=== PATIENT | female | born 2000 | race Caucasian/White ===

== ENCOUNTER 2019-07-10 04:39 | Emergency (ER) | payer OTHER ==
[~2019-07-10] VITALS: Ht 170.2 cm; Wt 91.6 kg
[2019-07-10 04:40] VITALS: BP 119/73
--- NOTE | 2019-07-10 04:45 | NUR ---
PT AMBULATED TO BED 6.
--- NOTE | 2019-07-10 05:00 | NUR ---
19 YEAR OLD FEMALE COMPLAINS OF SHORTNESS OF BREATHE X 1 HOUR. PATIENT VISIBLY SHAKING, STATES SHE HAD SENSATION WHEN DOING HOMEWORK. PATIENT AOX4, BREATHING EVEN AND UNLABORED, SKIN WARM AND DRY. RR 18, SPO2 100%. BED IN LOWEST POSITION, LOCKED, BED RAIL UPX1. PMH - ANXIETY, ASTHMA ALLERGIES - NKA
[2019-07-10] MEDS ORDERED: LORazepam 1 MG TAB PO ONE (05:05)
[2019-07-10 05:45] VITALS: BP 118/71
--- NOTE | 2019-07-10 05:45 | NUR ---
Patient discharged with v/s stable. Written and verbal after care instructions about anxiety and panic attacks given and explained. Patient verbalized understanding. Ambulatory with steady gait. All questions addressed prior to discharge. Advised to follow up with PMD.
== END 2019-07-10 05:45 | disposition home or self-care (01) ==
LOC: MED 04:39
DX: F41.8 Other specified anxiety disorders (principal); J45.909 Unspecified asthma, uncomplicated
CPT/HCPCS: 96372; 99282; 99283

== ENCOUNTER 2019-11-05 00:43 | Emergency (ER) | payer OTHER ==
[~2019-11-05] VITALS: Ht 170.2 cm; Wt 94.8 kg
[2019-11-05 00:50] VITALS: BP 147/92
--- NOTE | 2019-11-05 00:54 | NUR ---
PT AMBULATED TO BED #11
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
--- NOTE | 2019-11-05 00:58 | NUR ---
Dr. Roldan examining patient.
[2019-11-05 01:09] VITALS: BP 147/92
--- NOTE | 2019-11-05 01:09 | NUR ---
Patient discharged with v/s stable. Written and verbal after care instructions given and explained. Patient alert, oriented and verbalized understanding of instructions. Ambulatory with steady gait. All questions addressed prior to discharge. ID band removed. Patient advised to follow up with PMD. Rx of norco, motrin, atarax given. Patient educated on indication of medication including possible reaction and side effects. Opportunity to ask questions provided and answered.
== END 2019-11-05 01:09 | disposition home or self-care (01) ==
LOC: MED 00:43
DX: F41.9 Anxiety disorder, unspecified (principal); F12.90 Cannabis use, unspecified, uncomplicated; V89.2XXA Person injured in unspecified motor-vehicle accident, traffic, initial encounter; Y93.89 Activity, other specified; Y92.89 Other specified places as the place of occurrence of the external cause; Y99.8 Other external cause status
CPT/HCPCS: 99283